=== PATIENT | female | born 1990 | race Caucasian/White ===

== ENCOUNTER 2016-10-25 22:06 | Emergency (ER) | payer BC, OTHER ==
[~2016-10-25] VITALS: Ht 170.2 cm; Wt 62.6 kg
[2016-10-25 22:09] VITALS: TEMP 36.7; Ht 170.2 cm; Wt 62.6 kg
[2016-10-25] MEDS ORDERED: BCPILLS PO (22:15)
--- NOTE | 2016-10-25 22:45 | EMERGENCY ROOM VISIT NOTE ---
History Report prepared by Garima: Masood Bloom Under the Supervision of: Dr. Aury Kent D.O. First contact with patient: 22:23 Chief Complaint: KNEEPAIN Stated Complaint: KNEE PAIN, NUMBNESS, BURNING History of Present Illness The patient is a 26 year old female who presents to the Emergency Room with complaints of persistent left knee pain that started yesterday. She says that she was at work 2 days ago and was pushing somebody in a wheelchair, when she heard a pop in her left knee. However, at that time she did not have any pain. The patient states that yesterday, she was at work and turned out of the linen closet when she heard the knee pop again. At that time she started having pain in the knee that has persisted. She states that she has this burning shooting sensation around the inside of her left knee, but it is not swollen. She says that she can put weight on the knee but she is clearly "babying it". She notes that movement worsens the pain. The patient did not hear the knee pop tonight. The patient denies any sensations on the outside end of the knee. She has no history of injuries to her knees before. The patient has been taking Ibuprofen 400 mg for the pain. Source of History: patient Onset: Yesterday Position: knee (left) Quality: burning, other (shooting) Timing: other Modifying Factors (Worsening): movement Note: Associated symptoms: Denies swelling to knee. Review of Systems See HPI for pertinent positives & negatives. A total of 6 systems reviewed and were otherwise negative. Past Medical & Surgical Medical Problems: (1) No significant medical problems Surgical Problems: (1) No significant past surgical history Family History FH: hypertension Social History Smoking Status: Former Smoker Alcohol Use: occasionally Housing Status: lives with family Occupation Status: employed Current/Historical Medications Scheduled Control Pills ( Control Pills), 1 TAB PO DAILY Allergies Coded Allergies: No Known Allergies (Unverified , 10/25/16) Physical Exam Vital Signs Date Time Temp Pulse Resp B/P (MAP) Pulse Ox O2 Delivery O2 Flow Rate FiO2 10/25/16 23:14 78 18 116/75 96 10/25/16 22:09 36.7 90 16 140/92 98 Room Air Physical Exam GENERAL: alert, well appearing, well nourished, no distress, non-toxic EYE EXAM: normal conjunctiva, PERRL and EOM's grossly intact OROPHARYNX: no exudate, no erythema, lips, buccal mucosa, and tongue normal and mucous membranes are moist NECK: supple, no nuchal rigidity, no adenopathy, non-tender SKIN: no rashes and no bruising UPPER EXTREMITIES: upper extremities are grossly normal. LOWER EXTREMITIES: Left knee tenderness along medial joint line, no effusion, Patella normal position. Negative drawer test , negative Yumiko's test. Has increased pain with varus, stress. No calf tenderness, no obvious deformity. Full range of motion but increased pain with range of motion testing. No pitting edema. NEURO EXAM: Normal sensorium, cranial nerves II-XII grossly intact, normal speech, no gross weakness of arms, no gross weakness of legs. No drift. Finger to nose intact. Gross sensation intact. Medical Decision & Procedures ED Course 2235: The patient was evaluated in room B9. A complete history and physical exam was performed. The patient verbally expressed understanding and agreement of the treatment plan. The patient will be discharged. Medical Decision Differential diagnosis: Etiologies such as fracture, dislocation, neurovascular compromise, compartment syndrome, soft tissue injury, as well as others were entertained. Pt well appearing despite complaint. No evidence for deformity, joint effusion , no evidence of septic arthritis. No trauma to indicate need for xray. Likely needs outpt MRI. Discussed f/u with ortho sx to watch/return for, she verbalized understanding and was agreeable with plan. Medication Reconcilliation Current Medication List: was personally reviewed by me Blood Pressure Screening Patient's blood pressure: Elevated blood pressure Blood pressure disposition: Elevated BP felt to be situational Impression Primary Impression: Left knee pain Scribe Attestation The scribe's documentation has been prepared under my direction and personally reviewed by me in its entirety. I confirm that the note above accurately reflects all work, treatment, procedures, and medical decision making performed by me. Departure Information Dispostion Home / Self-Care Referrals Jose Rutledge M.D. (PCP) Patient Instructions My [facility] [employer] Additional Instructions Please follow up with your employee health department as this was an on-the-job injury. Please follow-up with an orthopedic surgeon, they may recommend additional imaging such as an MRI to better evaluate the ligaments, meniscus, and cartilage of the knee. You may continue using Tylenol and ibuprofen as needed. Please avoid any strenuous activity or heavy lifting until you're knee is improved to your otherwise cleared by orthopedics. If you develop any worsening pain, increased swelling, are unable to walk, develop fevers or chills , or you have any other new or concerning symptoms, please return the emergency room. Problem Qualifiers Primary Impression: Left knee pain Chronicity: acute Qualified Codes: M25.562 - Pain in left knee
[2016-10-25 23:14] VITALS: BP 116/75; PULSE 78; O2SAT 96
== END 2016-10-25 23:18 | disposition home or self-care (01) ==
LOC: C.EDB 22:07
DX: M25.562 Pain in left knee (principal); Z87.891 Personal history of nicotine dependence; Z82.49 Family history of ischemic heart disease and other diseases of the circulatory system